=== PATIENT | male | born 1945 | race Caucasian/White ===

== ENCOUNTER → 2017-04-20 | Outpatient (CLI) | payer MEDICARE, OTHER ==
[~2017-04-20] MED LIST: ACET-66 PO; ALLO100T PO; AMLO10TA2 PO; ASCO10007 PO; ASPI-555 PO; CALC625T PO; CHOL-4 PO; CINN500C PO; CIPR-245 PO; CLON0.2T PO; FISH1CAP50 PO; HUM100VI3 SQ; LORA1TAB3 PO; LOSA100T29 PO; MECL-111 PO; MULT-1203 PO; TAMS0.4C32 PO; TEAR; TRAM50TA2 PO; WARFARIN PO; ZOLP10TA6 PO; [UNRECOGNIZED DRUG - OTHER] PO
== END | disposition home or self-care (01) ==
LOC: RAH 08:01
PROVIDERS: ATTEND Urology
DX: N20.2 Calculus of kidney with calculus of ureter (principal); K59.00 Constipation, unspecified; I70.0 Atherosclerosis of aorta
CPT/HCPCS: 74176

== ENCOUNTER → 2017-05-31 | Outpatient (CLI) | payer MEDICARE, OTHER | END | disposition home or self-care (01) | LOC: RAH 11:46 | PROVIDERS: ATTEND Urology | DX: N13.2 Hydronephrosis with renal and ureteral calculous obstruction (principal); N40.0 Benign prostatic hyperplasia without lower urinary tract symptoms; K44.9 Diaphragmatic hernia without obstruction or gangrene; K76.0 Fatty (change of) liver, not elsewhere classified; I25.10 Atherosclerotic heart disease of native coronary artery without angina pectoris; N21.0 Calculus in bladder; N32.89 Other specified disorders of bladder; M47.895 Other spondylosis, thoracolumbar region; Z90.49 Acquired absence of other specified parts of digestive tract | CPT/HCPCS: 74176 ==

== ENCOUNTER → 2017-07-01 | Outpatient (CLI) | payer MEDICARE, OTHER | END | disposition home or self-care (01) | LOC: RAH 09:57 | PROVIDERS: ATTEND Urology | DX: N20.0 Calculus of kidney (principal) | CPT/HCPCS: 74176 ==

== ENCOUNTER → 2018-01-06 | Outpatient (CLI) | payer MEDICARE, OTHER ==
[~2018-01-06] MED LIST changes: -AMLO10TA2 PO; +AMLO10TA6 PO; +LOSA100T20 PO; -LOSA100T29 PO
== END | disposition home or self-care (01) ==
LOC: RAH 07:34
PROVIDERS: ATTEND Urology
DX: N20.0 Calculus of kidney (principal); I10 Essential (primary) hypertension; E11.9 Type 2 diabetes mellitus without complications
CPT/HCPCS: 74176

== ENCOUNTER 2019-09-07 06:22 | Day surgery (SDC) | payer MEDICARE, OTHER ==
[2019-09-04 14:58] LABS: BASOPHILS % (AUTO) 0.7 % (0.0-5.0); EOSINOPHILS % (AUTO) 2.5 % (0.0-8.0); HEMATOCRIT 39.8 % (42-54); LYMPHOCYTES % (AUTO) 25.5 % (21.0-51.0); MEAN CORPUSCULAR HEMOGLOBIN 31.2 pg (27.0-33.0); MEAN CORPUSCULAR HGB CONC 33.9 g/dL (32.0-36.0); MEAN CORPUSCULAR VOLUME 91.9 fL (79-99); MONOCYTES % (AUTO) 8.7 % (3.0-13.0); NEUTROPHILS % (AUTO) 62.2 % (40.0-77.0); PLATELET COUNT (AUTO) 235 K/uL (130-400); RED BLOOD CELL COUNT(AUTO) 4.33 MIL/uL (4.50-6.20); WHITE BLOOD COUNT (AUTO) 7.5 K/uL (4.8-10.8)
[2019-09-04 15:09] LABS: CREATININE 0.9 mg/dL (0.5-1.5); POTASSIUM 3.4 mmol/L (3.5-5.1)
[2019-09-04 15:12] LABS: APPEARANCE,URINE CLEAR (CLEAR); BILIRUBIN,URINE NEGATIVE (NEGATIVE); COLOR,URINE YELLOW (YELLOW); GLUCOSE, URINE (UA) 500 mg/dL (NEGATIVE); INR 1.29 (0.85-1.15); KETONES,URINE NEGATIVE (NEGATIVE); LEUKOCYTE ESTERASE ,URINE TRACE (NEGATIVE); NITRATE,URINE NEGATIVE (NEGATIVE); OCCULT BLOOD,URINE TRACE-INTACT (NEGATIVE); PARTIAL THROMBOPLASTIN TIME 33.3 SEC (26.3-35.5); PROTEIN,URINE NEGATIVE (NEGATIVE); PROTHROMBIN TIME 13.8 SEC (9.6-11.6); UROBILINOGEN,URINE 0.2 mg/dL (0.2-1.0)
[2019-09-04 15:36] LABS: WBC,URINE 26-50 /HPF (0-1)
[2019-09-04 15:37] LABS: BACTERIA,URINE Few /HPF (None Seen); SQUAMOUS EPITHELIAL CELL,UR None Seen /HPF (0-2)
[2019-09-04 15:38] LABS: YEAST,URINE BUDDING Rare /HPF (None Seen)
[2019-09-06 11:03] VITALS: BP 147/75
--- NOTE | 2019-09-06 12:24 | NUR ---
FAXED ABNORMAL LABS FROM 09/04/[address] DIALLO'S OFFICE PT PTT INR, BMP, UA, URINE CULT
--- NOTE | 2019-09-06 15:08 | NUR ---
ORDERS TO DRAW PT PTT INR UPON ARRIVAL FOR SURGERY PER DR DIALLO/LUISITO
[~2019-09-07] VITALS: Ht 167.6 cm; Wt 105.5 kg
[2019-09-07] VITALS (14 sets, daily range): BP systolic 128–163; BP diastolic 70–84
[~2019-09-07 06:22] MED LIST changes: +A REDS 2 PO; +AMIT25TA9 PO; -AMLO10TA6 PO; +AMLO5TAB9 PO; +CARV12.511 PO; +CEFTRIAXONE SODIUM 1 GM IVP SCH; -CIPR-245 PO; +CLON0.1T PO; -CLON0.2T PO; +GENTAMICIN SULFATE IV SCH; -HUM100VI3 SQ; +HYDR12.54 PO; +INSU10VI3 SQ; +LEVO500T89 PO; -LOSA100T20 PO; -MECL-111 PO; +PHARMACY COMMUNICATION MISC SCH; +SODIUM CHLORIDE 0.9% IV SCH; -TEAR; -TRAM50TA2 PO; +WARF6TAB49 PO; -WARFARIN PO; -ZOLP10TA6 PO; -[UNRECOGNIZED DRUG - OTHER] PO
[2019-09-07] MEDS ORDERED: GENTAMICIN SULFATE 320 MG in SODIUM CHLORIDE 0.9% 100 ML IV SCH (07:15)
[2019-09-07 07:25] LABS: PARTIAL THROMBOPLASTIN TIME 28.8 SEC (26.3-35.5)
[2019-09-07 07:35] LABS: INR 1.02 (0.85-1.15)
[2019-09-07] MEDS ORDERED: SODIUM CHLORIDE 0.9% 1000ML 1,000 ML IV ONE ×2 (08:01→12:31)
[2019-09-07] MEDS ORDERED: KETAMINE 50MG/ML SYRINGE 50 MG/ML DISP.SYRIN IV ONE (10:11)
[2019-09-07] MEDS ORDERED: PROPOFOL 10 MG/ML 20ML VIAL IV ONE (10:21)
[2019-09-07] MEDS ORDERED: MIDAZOLAM HCL 1 MG/ML 2ML VIAL ONE (10:21)
[2019-09-07] MEDS ORDERED: SUCCINYLCHOLINE CHLORIDE 20 MG/ML 10 ML VIAL ONE (10:21)
[2019-09-07] MEDS ORDERED: LIDOCAINE PF 2% 5ML ABBOJECT ONE (10:21)
[2019-09-07] MEDS ORDERED: IOHEXOL-350 50ML VIAL IV ONE (10:30)
[2019-09-07] MEDS ORDERED: ROCURONIUM 10MG/1ML SYR 10 MG/ML ML ONE (10:49)
[2019-09-07] MEDS ORDERED: FENTANYL CITRATE PF 50 MCG/1 ML 2ML VIAL ONE (10:58)
[2019-09-07] MEDS ORDERED: NEOSTIGMINE 5MG/5ML SYR IV ONE (11:54)
[2019-09-07] MEDS ORDERED: ONDANSETRON HCL 4 MG/2 ML VIAL ONE ×2 (11:54→12:29)
[2019-09-07] MEDS ORDERED: GLYCOPYRROLATE 1 MG/5 ML SYRINGE ONE (11:54)
[2019-09-07] MEDS ORDERED: SCOPOLAMINE HYDROBROMIDE 1 EACH ADH..PATCH TD ONE (12:36)
[2019-09-07] MEDS ORDERED: MEPERIDINE-PF 25 MG/ML SYG ONE ×2 (12:43→12:56)
--- NOTE | 2019-09-07 13:45 | NUR ---
patient arrived to day patient via stretcher by carmenza clements rn. patient aaox3, respirations unlabored, vital signs, patient c/o burning sensation to penis. Nielson catheter in place draining clear yellow fluid, bladder irrigation clamped at this time.
--- NOTE | 2019-09-07 14:10 | NUR ---
discharge instructions provided to patient's daughter (sandy) via telephone. follow up appointment provided and heath care instructions provided as well. prescription provided to patient and discharge instructions also explained to patient. all questions/concerns addressed at this time.
--- NOTE | 2019-09-07 15:30 | NUR ---
heath catheter bag switched out to a leg bag, patient tolerated well. instructed patient on heath care and how to switch out to large heath bag. patient verbalized understanding.
--- NOTE | 2019-09-07 15:35 | NUR ---
PATIENT DISCHARGED FROM FACILITY VIA WHEELCHAIR BY SAMUEL ALVARADO RN. PATIENT ASSISTED INTO PRIVATE VEHICLE DRIVEN BY FAMILY MEMBER.
== END 2019-09-07 15:35 | disposition home or self-care (01) ==
LOC: DAH 06:22
PROVIDERS: ATTEND Urology
DX: N40.1 Benign prostatic hyperplasia with lower urinary tract symptoms (principal); N21.0 Calculus in bladder; I10 Essential (primary) hypertension; E11.9 Type 2 diabetes mellitus without complications; F41.9 Anxiety disorder, unspecified; Z86.010 Personal history of colon polyps; Z79.01 Long term (current) use of anticoagulants
CPT/HCPCS: 36415 ×2; 52317; 52648; 71045; 80048; 81001; 82360; 82948 ×2; 85025; 85610 ×2; 85730 ×2; 87077; 87088; 87186; A4215; A4221; A4222; A4223; A4354; A4663; A6260; C1758; J0330; J0696; J1580; J2001; J2175 ×2; J2250; J2405 ×2; J2704; J2710; J3010; J3490 ×2; J7030 ×3; 96360; Q9967